=== PATIENT | male | born 1970 | race Two or more races ===

== ENCOUNTER 2020-12-14 04:53 | Day surgery (SDC) | payer OTHER ==
[2020-12-10 17:13] VITALS: BMI 25.7
[2020-12-14] MEDS ORDERED: MIDAZOLAM HCL 2 MG/2 ML SINGLE DOSE VIAL ONE (10:11)
[2020-12-14] MEDS ORDERED: PROPOFOL 20 ML ONE ×2 (10:11)
[2020-12-14] MEDS ORDERED: DESFLURANE GAS 240 ML BOTTLE IH ONE (10:22)
[2020-12-14] MEDS ORDERED: GENTAMICIN SO4 80 MG/2 ML VIAL ONE (11:45)
[2020-12-14] MEDS ORDERED: ONDANSETRON 4 MG/2 ML VIAL IVPUSH PRN (12:44)
[2020-12-14] MEDS ORDERED: PROMETHAZINE HCL 25 MG/1 ML VIAL IVPUSH PRN (12:44)
[2020-12-14] MEDS ORDERED: LACTATED RINGERS SOLUTION 1,000 ML IV SCH (12:45)
[2020-12-14] MEDS ORDERED: ONDANSETRON 4 MG/2 ML VIAL ONE (13:31)
[2020-12-14] MEDS ORDERED: KETOROLAC TROMETHAMINE 30 MG/1 ML VIAL IVPUSH ONE ×2 (13:43→13:50)
[2020-12-14 15:24] VITALS: BP 125/74; PULSE 81; TEMP 97.6
== END 2020-12-14 14:45 | disposition home or self-care (01) ==
LOC: JASU-SURG 04:53
PROVIDERS: ATTEND Urology
PROC: 0TC68ZZ Extirpation of Matter from Right Ureter, Via Natural or Artificial Opening Endoscopic (ICD-10-PCS; principal; 2020-12-14 11:00)
PROC: 0T768DZ Dilation of Right Ureter with Intraluminal Device, Via Natural or Artificial Opening Endoscopic (ICD-10-PCS; 2020-12-14 11:00)
DX: N20.0 Calculus of kidney (principal)
CPT/HCPCS: 76000-TC-FY; 94760

== ENCOUNTER 2020-12-28 04:33 | Day surgery (SDC) | payer OTHER ==
[2020-12-25 11:23] VITALS: BMI 25.7
[2020-12-28] MEDS ORDERED: PROPOFOL 20 ML ONE (15:42)
[2020-12-28 19:18] VITALS: BP 133/83; PULSE 62; TEMP 97.8
== END 2020-12-28 17:42 | disposition home or self-care (01) ==
LOC: JASU-SURG 04:33
PROVIDERS: ATTEND Urology
PROC: 0TF3XZZ Fragmentation in Right Kidney Pelvis, External Approach (ICD-10-PCS; principal; 2020-12-28 13:30)
DX: N20.0 Calculus of kidney (principal)

== ENCOUNTER 2021-03-08 04:32 | Day surgery (SDC) | payer OTHER ==
[2021-03-04 11:02] VITALS: BMI 25.7
[2021-03-08] MEDS ORDERED: MIDAZOLAM HCL 2 MG/2 ML SINGLE DOSE VIAL ONE ×2 (14:17)
[2021-03-08 19:35] VITALS: BP 104/77; PULSE 62; TEMP 97
== END 2021-03-08 19:30 | disposition home or self-care (01) ==
LOC: JASU-SURG 04:32
PROVIDERS: ATTEND Urology
PROC: 0TF3XZZ Fragmentation in Right Kidney Pelvis, External Approach (ICD-10-PCS; principal; 2021-03-08 12:00)
DX: N20.0 Calculus of kidney (principal)

== ENCOUNTER 2022-06-28 04:44 | Day surgery (SDC) | payer OTHER ==
[2022-06-24 14:00] VITALS: BMI 26.6
[2022-06-28 10:35] VITALS: BP 123/75; PULSE 95; RESP 18; TEMP 98
== END 2022-06-28 10:55 | disposition home or self-care (01) ==
LOC: JASU-ENDO 04:44
PROVIDERS: ATTEND Internal Medicine Gastroenterology
PROC: 0DB78ZX Excision of Stomach, Pylorus, Via Natural or Artificial Opening Endoscopic, Diagnostic (ICD-10-PCS; 2022-06-28)
PROC: 0DB68ZX Excision of Stomach, Via Natural or Artificial Opening Endoscopic, Diagnostic (ICD-10-PCS; 2022-06-28)
PROC: 0DB48ZX Excision of Esophagogastric Junction, Via Natural or Artificial Opening Endoscopic, Diagnostic (ICD-10-PCS; principal; 2022-06-28 08:30)
DX: K29.50 Unspecified chronic gastritis without bleeding (principal)
CPT/HCPCS: 88305-TC; 88342-TC

== ENCOUNTER 2022-07-05 04:21 | Day surgery (SDC) | payer OTHER ==
[2022-07-04 11:19] VITALS: BMI 26.6
[2022-07-05 12:40] VITALS: BP 128/97; PULSE 71; RESP 16; TEMP 98
== END 2022-07-05 12:20 | disposition home or self-care (01) ==
LOC: JASU-ENDO 04:21
PROVIDERS: ATTEND Internal Medicine Gastroenterology
PROC: 0DJD8ZZ Inspection of Lower Intestinal Tract, Via Natural or Artificial Opening Endoscopic (ICD-10-PCS; principal; 2022-07-05 10:15)
DX: Z12.11 Encounter for screening for malignant neoplasm of colon (principal); K64.8 Other hemorrhoids

== ENCOUNTER 2023-12-25 04:24 | Day surgery (SDC) | payer OTHER ==
[2023-12-22 11:24] VITALS: BMI 26.6
[2023-12-25 13:11] VITALS: RESP 20
[2023-12-25] MEDS ORDERED: MIDAZOLAM HCL 2 MG/2 ML SINGLE DOSE VIAL ONE (15:14)
[2023-12-25] MEDS ORDERED: ONDANSETRON 4 MG/2 ML VIAL ONE (15:15)
[2023-12-25 16:22] VITALS: TEMP 97.5
[2023-12-25 17:42] VITALS: BP 122/76; PULSE 57
== END 2023-12-25 17:15 | disposition home or self-care (01) ==
LOC: JASU-SURG 04:24
PROVIDERS: ATTEND Urology
PROC: 0TF3XZZ Fragmentation in Right Kidney Pelvis, External Approach (ICD-10-PCS; principal; 2023-12-25 15:30)
DX: N20.0 Calculus of kidney (principal)